=== PATIENT | male | born 1945 | race Caucasian/White ===

== ENCOUNTER 2022-02-22 11:56 | Outpatient (CLI) | payer MEDICARE, BC ==
[2022-02-22 13:18] LABS: Hemoglobin 13.6 g/dL (13.5-17.5); Mean Corpuscular HGB CONC 36.1 g/dL (32.0-36.0); Mean Corpuscular Hemoglobin 32.7 pg (27.0-33.0); Mean Corpuscular Volume 90.6 fl (81.2-95.1); Platelet Count 251 10x3/uL (150-450); RBC Distribution Width 12.3 % (11.5-14.5); Red Blood Cell (RBC) Count 4.16 10x6/uL (4.32-5.72); White Blood Cell (WBC) Count 7.9 10x3/uL (3.5-10.5)
[2022-02-22 13:26] LABS: Anion Gap 14 mmol/L (10-20); BUN (Urea Nitrogen) 17 mg/dL (8.4-25.7); Calc. Creatinine Clearance 0 mL/min (70-130); Calcium 9.8 mg/dL (7.8-10.44); Carbon Dioxide 26 mmol/L (23-31); Chloride 97 mmol/L (98-107); Estimated GFR 89; Glucose 94 mg/dL (83-110); Potassium 3.9 mmol/L (3.5-5.1); Sodium 133 mmol/L (136-145)
[2022-02-22 13:27] LABS: PTT 30.9 sec (22.0-33.0); Prothrombin Time 10.8 sec (9.5-12.1)
== END 2022-02-22 11:57 | disposition home or self-care (01) ==
LOC: CSHLAB 11:56
PROVIDERS: ATTEND Orthopaedic Surgery
DX: Z01.818 Encounter for other preprocedural examination (principal); M17.12 Unilateral primary osteoarthritis, left knee
CPT/HCPCS: 80048; 85027; 85610; 85730; 87081; 93005; 93010

== ENCOUNTER 2022-03-01 07:38 | Observation (INO) | payer MEDICARE ==
[2022-02-25 12:02] VITALS: BMI 25.0
[2022-03-01] MEDS ORDERED: Fentanyl 100 MCG/2 ML VIAL ONE ×2 (08:53→09:53)
[2022-03-01] MEDS ORDERED: Lidocaine 1% MPF 2 ML VIAL ONE (08:53)
[2022-03-01] MEDS ORDERED: Bupivacaine PF 0.5% 30 ML VIAL ONE (08:54)
[2022-03-01] MEDS ORDERED: Bupivacaine HCl 0.5%/Epinephrine 1:200,000/PF 30 ml Vial FS SCH (09:15)
[2022-03-01] MEDS ORDERED: Bupivacaine 0.25% HCL 30 ML VIAL ONE (09:15)
[2022-03-01] MEDS ORDERED: EPINEPHrine 1 MG/ML AMP ONE (09:15)
[2022-03-01] MEDS ORDERED: Neomycin-Polymyxin 1 ML AMP ONE ×2 (09:16→09:18)
[2022-03-01] MEDS ORDERED: Lidocaine 1% PF 5 ML VIAL ONE (09:53)
[2022-03-01] MEDS ORDERED: PROPOFOL 20 ML ONE (09:53)
[2022-03-01] MEDS ORDERED: CEFAZOLIN 2 GM VIAL ONE (09:57)
[2022-03-01] MEDS ORDERED: Tranexamic Acid 1,000 MG/10 ML VIAL ONE (10:07)
[2022-03-01] MEDS ORDERED: PHENYLEPHRINE-NS 100 MCG/ML 10 ML SYRINGE ONE ×2 (10:43→12:15)
[2022-03-01] MEDS ORDERED: Ondansetron PF 4 MG/2 ML Vial ONE (12:09)
[2022-03-01] MEDS ORDERED: ePHEDrine Sulfate 50 MG/10 ML VIAL ONE (12:15)
[2022-03-01] MEDS ORDERED: Morphine 2 MG/ML VIAL SLOW IVP PRN (14:28)
[2022-03-01] MEDS ORDERED: Zolpidem Tartrate 5 MG TAB PO PRN (14:30)
[2022-03-01] MEDS ORDERED: Ondansetron PF 4 MG/2 ML Vial IVP PRN (14:30)
[2022-03-01] MEDS ORDERED: Acetaminophen 325 MG TAB PO PRN (14:30)
[2022-03-01] MEDS ORDERED: Promethazine HCl 25 MG/ML VIAL IM PRN (14:30)
[2022-03-01] MEDS ORDERED: diphenhydrAMINE 25 MG CAP PO PRN (14:30)
[2022-03-01] MEDS: Sodium Chloride 0.9% 1,000 ML IV SCH (15:07)
[2022-03-01] MEDS: CEFAZOLIN 2 GM in Sodium Chloride 0.9% 100 ML IVPB SCH ×2 (15:07→22:16)
[2022-03-01] MEDS: HYDROcodone/Acetaminophen 10/325 mg Tablet PO PRN (16:37)
[2022-03-01] MEDS: Aspirin 81 mg Enteric Coated Tablet PO SCH (20:44)
[2022-03-01] MEDS: Ketorolac Tromethamine 30 MG/ML VIAL IM/IV SCH (22:18)
[2022-03-02] MEDS: Sodium Chloride 0.9% 1,000 ML IV SCH ×3 (01:33→20:18)
[2022-03-02 05:04] LABS: Hemoglobin 10.2 g/dL (13.5-17.5); Mean Corpuscular HGB CONC 34.9 g/dL (32.0-36.0); Mean Corpuscular Hemoglobin 32.6 pg (27.0-33.0); Mean Corpuscular Volume 93.3 fl (81.2-95.1); Mean Platelet Volume 8.8 fl (7.4-10.4); Platelet Count 146 10x3/uL (150-450); RBC Distribution Width 12.6 % (11.5-14.5); Red Blood Cell (RBC) Count 3.13 10x6/uL (4.32-5.72); White Blood Cell (WBC) Count 6.8 10x3/uL (3.5-10.5)
[2022-03-02] MEDS: Ketorolac Tromethamine 30 MG/ML VIAL IM/IV SCH ×3 (05:58→21:35)
[2022-03-02] MEDS: HYDROcodone/Acetaminophen 10/325 mg Tablet PO PRN ×3 (06:37→17:01)
[2022-03-02] MEDS: Morphine 4 MG/ML VIAL SLOW IVP PRN ×2 (08:50→13:16)
[2022-03-02] MEDS: Multivitamin W/ Minerals 1 TAB PO SCH (08:51)
[2022-03-02] MEDS: Senokot S 8.6-50 MG TAB PO SCH ×2 (08:51→20:18)
[2022-03-02] MEDS: Ferrous Gluconate 324 MG TAB PO SCH ×2 (08:52→17:02)
[2022-03-02] MEDS: Aspirin 81 mg Enteric Coated Tablet PO SCH ×2 (08:52→20:18)
[2022-03-03 05:31] LABS: Hemoglobin 9.8 g/dL (13.5-17.5); Mean Corpuscular HGB CONC 35.3 g/dL (32.0-36.0); Mean Corpuscular Volume 93.6 fl (81.2-95.1); Platelet Count 155 10x3/uL (150-450); RBC Distribution Width 12.5 % (11.5-14.5); Red Blood Cell (RBC) Count 2.97 10x6/uL (4.32-5.72); White Blood Cell (WBC) Count 7.8 10x3/uL (3.5-10.5)
[2022-03-03] MEDS: Sodium Chloride 0.9% 1,000 ML IV SCH (05:37)
[2022-03-03] MEDS: Ketorolac Tromethamine 30 MG/ML VIAL IM/IV SCH ×2 (06:13→13:57)
[2022-03-03] MEDS: HYDROcodone/Acetaminophen 10/325 mg Tablet PO PRN ×2 (06:53→13:56)
[2022-03-03] MEDS: Senokot S 8.6-50 MG TAB PO SCH (08:26)
[2022-03-03] MEDS: Ferrous Gluconate 324 MG TAB PO SCH (08:26)
[2022-03-03] MEDS: Aspirin 81 mg Enteric Coated Tablet PO SCH (08:26)
[2022-03-03] MEDS: Multivitamin W/ Minerals 1 TAB PO SCH (08:26)
[2022-03-03 15:40] VITALS: BP 122/63; TEMP 98.2
[2022-03-04] MEDS ORDERED: Chlorthalidone 25 MG TAB PO SCH (09:00)
[2022-03-04] MEDS ORDERED: Multivit, Therapeutic 1 TAB PO SCH (09:00)
[2022-03-04] MEDS ORDERED: Aspirin Chewable 81 MG TAB PO SCH (09:00)
[2022-03-04] MEDS ORDERED: Vit A,C & E/Lutein/Minerals Tablet PO SCH (09:00)
[2022-03-04] MEDS ORDERED: Potassium Chloride 10 MEQ TAB PO SCH (09:00)
== END 2022-03-03 16:10 | disposition home health service (06) ==
LOC: CSHSDC 07:38 → CSHTELE 13:49
PROVIDERS: ADMIT Orthopaedic Surgery; ATTEND Orthopaedic Surgery
PROC: 0SRD0JZ Replacement of Left Knee Joint with Synthetic Substitute, Open Approach (ICD-10-PCS; principal; 2022-03-01)
DX: M17.12 Unilateral primary osteoarthritis, left knee (principal); I10 Essential (primary) hypertension; K21.9 Gastro-esophageal reflux disease without esophagitis; Z79.82 Long term (current) use of aspirin; Z79.899 Other long term (current) drug therapy; Z98.890 Other specified postprocedural states
CPT/HCPCS: 36415; 85027; 87811; C1713; C1776; J0171; J1885; J2270; J2405; J2704; J3010; J3370; J7050; S0020

== ENCOUNTER 2022-12-22 12:24 | Outpatient (CLI) | payer MEDICARE | END 2022-12-22 12:25 | disposition home or self-care (01) | LOC: CSHRAD 12:24 | PROVIDERS: ATTEND Surgery | DX: R59.1 Generalized enlarged lymph nodes (principal) | CPT/HCPCS: 71046 ==

== ENCOUNTER 2024-02-22 13:52 | Outpatient (CLI) | payer MEDICARE | END 2024-02-22 13:53 | disposition home or self-care (01) | LOC: CSHULT 13:52 | PROVIDERS: ATTEND Family Medicine | DX: R55 Syncope and collapse (principal); I35.2 Nonrheumatic aortic (valve) stenosis with insufficiency | CPT/HCPCS: 93306 ==